=== PATIENT | male | born 1960 | race Caucasian/White ===

== ENCOUNTER → 2025-05-01 | Outpatient (CLI) | payer OTHER ==
--- NOTE | 2025-05-02 10:08 | HMCIMG ---
EXAM: CT Cardiac calcium scoring. CLINICAL HISTORY: CAD screening. TECHNIQUE: Thin collimated axial CT cardiac images were obtained. A CT scan is done according to ALARA (As Low As Reasonably Achievable). CONTRAST: None. COMPARISON: None provided. FINDINGS: Calcium Score: VESSEL Number of lesions Volume mm3 Equi. Mass/mg Calcium score LM 1 0.1 --.-- 0.4 LAD 7 181.00 --.-- 246.6 LCX 4 4.7 --.-- 6.8 RCA 19 210.00 --.-- 279.0 Total 31 396.9 --.-- 532.8 IMPRESSION: The calcium score is 532.8. This places the patient into 75th percentile in comparison to a group of patients asymptomatic for coronary artery disease with the same age and gender. This means that 75% of males aged 65-69 have a calcium score that is lower than the patient's. /[place]
== END | disposition home or self-care (01) ==
LOC: RAH 10:55
PROVIDERS: ATTEND Internal Medicine Critical Care Medicine
DX: Z13.6 Encounter for screening for cardiovascular disorders (principal); I25.10 Atherosclerotic heart disease of native coronary artery without angina pectoris; E78.5 Hyperlipidemia, unspecified
CPT/HCPCS: 75571